=== PATIENT | male | born 1955 ===

== ENCOUNTER 2017-12-04 11:30 | Inpatient (IN) | payer OTHER ==
[~2017-12-04] VITALS: Ht 167.6 cm; Wt 104.3 kg
[2017-12-04] MEDS ORDERED: LIPITOR20 MG PO (13:55)
[2017-12-04] MEDS ORDERED: AVAPRO150 MG PO (13:55)
[2017-12-14] MEDS ORDERED: GABAPENTIN800 MG PO (10:50)
[2017-12-14] MEDS ORDERED: DOCUSATE SODIU100 MG PO (10:50)
[2017-12-14] MEDS ORDERED: AMOX-CLAV 875-1 EACH PO (10:51)
[2017-12-14] MEDS ORDERED: PERCOCET 5-3251 EACH PO (10:52)
[2017-12-14] MEDS ORDERED: CLONAZEPAM1 MG PO (10:52)
== END 2017-12-14 16:48 | DRG 460 ==
LOC: O/R 12-13 05:55 → SURG 12-13 10:00 → EDBD 12-13 11:30 → PED 12-13 12:16
PROVIDERS: Orthopaedic Surgery Orthopaedic Surgery of the Spine
PROC: 0SG10AJ Fusion of 2 or more Lumbar Vertebral Joints with Interbody Fusion Device, Posterior Approach, Anterior Column, Open Approach (ICD-10-PCS; 2017-12-13)
PROC: 0ST20ZZ Resection of Lumbar Vertebral Disc, Open Approach (ICD-10-PCS; 2017-12-13)
PROC: 07DS3ZZ Extraction of Vertebral Bone Marrow, Percutaneous Approach (ICD-10-PCS; 2017-12-13)
PROC: 0SG10A0 Fusion of 2 or more Lumbar Vertebral Joints with Interbody Fusion Device, Anterior Approach, Anterior Column, Open Approach (ICD-10-PCS; principal; 2017-12-13 10:00)
DX: M43.16 Spondylolisthesis, lumbar region (principal); M48.061 Spinal stenosis, lumbar region without neurogenic claudication; I10 Essential (primary) hypertension; M47.896 Other spondylosis, lumbar region